=== PATIENT | female | born 1970 | race Caucasian/White ===

== ENCOUNTER 2022-03-04 18:24 | Emergency (ER) | payer MEDICAID, SELFPAY ==
[2022-03-04 18:28] VITALS: BP 150/88; PULSE 78; RESP 16; TEMP 36.9; O2SAT 98
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
[2022-03-04 20:08] VITALS: BP 134/76; PULSE 87; RESP 18; TEMP 36.6; O2SAT 99
== END 2022-03-04 20:08 | disposition home or self-care (01) ==
LOC: ER 20:12
PROVIDERS: Emergency Provider Physician Assistant
DX: S60.021A Contusion of right index finger without damage to nail, initial encounter (principal); S60.031A Contusion of right middle finger without damage to nail, initial encounter; S60.041A Contusion of right ring finger without damage to nail, initial encounter; S60.051A Contusion of right little finger without damage to nail, initial encounter; V48.5XXA Car driver injured in noncollision transport accident in traffic accident, initial encounter; F17.210 Nicotine dependence, cigarettes, uncomplicated
CPT/HCPCS: 99283; 73130; 99282

== ENCOUNTER 2023-02-02 19:39 | Emergency (ER) | payer MEDICAID, SELFPAY ==
[2023-02-02] VITALS (131 sets, daily range): BP systolic 121–155; BP diastolic 65–105; PULSE 82–99; RESP 10–31; TEMP 36.8; O2SAT 76–100
--- NOTE | 2023-02-02 19:30 | RT.EKG_ITS ---
APPROVED REPORT Exam: Resting ECG Reason for Exam: chest pain Patient Location: E HR:85 bpm ECG Measurements Heart Rate 85 AXIS MI 131 P 33 QRSd 89 QRS 17 QT 370 T 44 QTc 442 Conclusion Sinus rhythm..., V-rate 60- 99 Left ventricular hypertrophy...multiple voltage criteria Appropriate intervals. No ST segment or T wave abnormalities to suggest occlusive RI
--- NOTE | 2023-02-02 19:45 | RT.EKG_ITS ---
APPROVED REPORT Exam: Resting ECG Reason for Exam: Pt requests repeat for lead placement Patient Location: E HR:86 bpm ECG Measurements Heart Rate 86 AXIS CA 137 P 44 QRSd 84 QRS 15 QT 375 T 49 QTc 448 Conclusion Sinus rhythm...normal P axis, V-rate 60- 99 Probable left atrial enlargement...P >50mS, <-0.10mV V1 Left ventricular hypertrophy...multiple LVH criteria
[2023-02-02 20:03] LABS: Abs Immature Grans 0.01 10^3/uL (0.0-0.06); Absolute Basophil Count 0.04 10^3/uL (0.0-0.2); Absolute Eosinophil Count 0.16 10^3/uL (0.0-0.7); Absolute Lymphocyte Count 1.62 10^3/uL (1.2-3.4); Absolute Monocyte Count 0.51 10^3/uL (0.1-0.8); Absolute Neutrophil Count 4.37 10^3/uL (1.2-6.7); Basophils % 0.6; Eosinophils % 2.4; HCT 37.4 % (36.0-46.0); HGB 12.2 g/dL (11.2-15.7); Immature Grans % 0.1; Lymphocytes % 24.1; MCH 31.9 pg (27.0-33.0); MCHC 32.6 % (32.0-36.0); MCV 98 fL (80-95); Monocytes % 7.6; Neutrophils % 65.2; Platelet Count 302 10^3/uL (130-400); RBC 3.82 10^6/uL (3.93-5.22); RDW 13.6 % (11.7-14.6); WBC 6.71 10^3/uL (4.4-10.8)
[2023-02-02] MEDS: MORPHine 4 MG/ML SYR IVP (20:13)
[2023-02-02 20:20] LABS: ALT 33 U/L (14-59); AST 29 U/L (15-37); Albumin 3.7 g/dL (3.4-5.0); Alkaline Phosphatase 143 U/L (46-116); Anion Gap 8.5 mmol/L (3-11); BUN 10 mg/dL (7-18); Bilirubin, Total 0.2 mg/dL (0.2-1.0); CO2 29.5 mmol/L (21.0-32.0); CREATININE 0.6 mg/dL (0.55-1.02); Chloride 102 mmol/L (98-107); Glucose 94 mg/dL (74-106); Potassium 3.7 mmol/L (3.5-5.1); Sodium 140 mmol/L (136-145); Total Protein 7.2 g/dL (6.4-8.2); Troponin I < 50 ng/L (<or=60)
--- NOTE | 2023-02-02 20:30 | DI.CT_ITS ---
Exam(s) CT CHEST PE CTA EXAM: CT CHEST PE CTA CLINICAL HISTORY: chest pain. TECHNIQUE: Imaging Protocol: Axial CT angiography was performed with multi-slice acquisition and mu lti-planar reconstructions as well as axial, coronal and sagittal MIP reconstructions. CONTRAST MATERIAL: Intravenous: Omnipaque 350 Contrast volume:100 ml COMPARISON: No exams were available for comparison FINDINGS: Pulmonary Arteries: No evidence of filling defect to suggest pulmonary emboli. Tracheobronchial tree: Patent where visualized. Mediastinum and [place]: No dominant adenopathy or fluid collection. Pulmonary parenchyma: Dependent changes. No consolidation or dominant measurable mass. Pleura: No effusion or pneumothorax. Heart: The heart is not dilated. No coronary artery calcifications are seen. Aorta: Ascending aorta 3.7 cm. No aneurysm. No dissection. Upper abdomen: Unremarkable. Bones: Unremarkable for age. Esophagus contains fluid up to the level of the aortic arch, consistent with reflux.. Prior surgery at the GE junction. IMPRESSION: No evidence of pulmonary embolism. Prior surgery at GE junction. Fluid seen in esophagus could indicate reflux. RADIATION DOSE DELIVERED: 270.8mGy.cm Total DLP DATA REPOSITORY: All CT scans at this facility are submitted to the National Radiology Data Registry (NRDR) Dose Index Registry (DIR) with the [employer] ([employer]). RADIATION OPTIMIZATION: All CT scans at this facility use at least one of these dose optimization te chniques: automated exposure control; mA and/or kV adjustment per patient size (includes targeted exa ms where dose is matched to clinical indication); or iterative reconstruction.
[2023-02-02 20:35] LABS: D-Dimer 581 ng/mlFEU (<500)
[2023-02-02] MEDS: Omnipaque 350 MG/ML 100 ML BTL IJ (21:22)
[2023-02-02] MEDS: Normal Saline - Diluent 50 ML VIAL IJ (21:23)
[2023-02-02] MEDS: Normal Saline Flush 10 ML SYR IVP (21:23)
[2023-02-02] MEDS: HYDROmorphone 2 MG/ML SYR 1 MG IVP (21:24)
[2023-02-02] MEDS: ACETAMINOPHEN 1,000 MG/100 ML BTL 400 MG IVPB (21:55)
[2023-02-02] MEDS: LORazepam 2 MG/ML VIAL 1 MG IVP (22:04)
--- NOTE | 2023-02-02 22:10 | DI.VRAD_ITS ---
PROCEDURE INFORMATION: Exam: CTA Chest With Contrast Exam date and time: 02/02/2023 9:28 PM Age: 53 years old Clinical indication: Other: Chest pain TECHNIQUE: Imaging protocol: Computed tomographic angiography of the chest with contrast. Exam focused on the arteries. 3D rendering (Not supervised by radiologist): MIP and/or 3D reconstructed images were created by the technologist. Radiation optimization: All CT scans at this facility use at least one of these dose optimization techniques: automated exposure control; mA and/or kV adjustment per patient size (includes targeted exams where dose is matched to clinical indication); or iterative reconstruction. Contrast material: OMNI 350; Contrast volume: 100 ml; Contrast route: INTRAVENOUS (IV); COMPARISON: No relevant prior studies available. FINDINGS: Pulmonary arteries: Normal. No pulmonary emboli. Aorta: Unremarkable. No aortic aneurysm. No aortic dissection. Lungs: Unremarkable. No consolidation. No masses. Pleural spaces: Unremarkable. No pneumothorax. No pleural effusion. Heart: Unremarkable. No cardiomegaly. No pericardial effusion. Lymph nodes: Unremarkable. No enlarged lymph nodes. Diaphragm: Small hiatal hernia. Bones/joints: Mild degenerative disc changes throughout the thoracic spine. No acute fracture. Soft tissues: Unremarkable. IMPRESSION: No acute abnormality. Chronic findings as noted. Dictated and Authenticated by: Murali Lynn MD. Ordering:PATRICA Howard MD
[2023-02-02] MEDS: Normal Saline 1,000 ML 1000 ML IV (22:18)
--- NOTE | 2023-02-02 23:01 | ED.GENADUL_ITS ---
Discharge Plan Disposition Patient Disposition: Home Discharge Details Clinical Impression: Chest pain ED Provider: Lee Cornejo Home Meds and New Rx's Prescriptions: Continued sertraline [Zoloft] 100 mg Tablet 300 mg PO DAILY folic acid 10 mg/mL Solution 20 mg dextroamphetamine-amphetamine [Adderall] 20 mg Tablet 20 mg PO BID hydroxychloroquine [Plaquenil] 200 mg Tablet 200 mg PO DAILY celecoxib [Celebrex] 100 mg Capsule 100 mg PO BID methotrexate (PF) 20 mg/0.4 mL Auto-Injector 40 mg SUBCUT QWEEK colchicine (gout) 0.6 mg Capsule 0.6 mg PO BID Discharge Instructions Instructions: Chest Pain (ED) Additional Instructions: At this time your emergency department work-up is nondiagnostic and shows no obvious source for your chest pain. You may continue use of your normally prescribed medications or appropriate [id number] medications as needed for discomfort. If you have any new or significant worsening of symptoms please return to the emergency department for reassessment immediately otherwise follow-up with your primary care provider preferably in the next couple days to arrange any further outpatient testing as needed. Stand Alone Forms: Work Release Referrals: Primary Care Provider [Outside] - 3 days (For reassessment and further testing and treatment as needed) Discharge Data Discharge Date/Time-TO BE ENTERED AT DEPARTURE: 02/03/23 04:36 Medical Decision Making Patient presenting today to the emergency department for chief complaint of substernal chest pain. Patient reports 3 hours prior to arrival she was doing some shoveling and started having some substernal chest pain. Pain and pressure continued to worsen and having some pain in her jaw as well. Patient does state pain with inspiration but denies shortness of breath, nausea vomiting, lightheadedness or dizziness. 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 Physical exam is unremarkable beyond patient appearing to be in significant amount of pain and discomfort. We will plan on performing labs EKG and imaging. Pending results we will give patient morphine Please see physician interpretation for full interpretation of EKG but upon my review it appears that patient is in sinus rhythm and does not meet acute criteria for STEMI. We will continue to monitor Even in spite of morphine patient continued to have significant discomfort so we will give 1mg of Dilaudid if this helps patient's pain and discomfort. Review of labs show an overall nondiagnostic CBC, CMP just shows a slightly elevated alk phos at 143 otherwise CMP is negative, initial troponin is negative/nondetected and slightly elevated D-dimer. Given elevated D-dimer will perform CTA chest PE. After CT imaging patient continued to have pain and discomfort so IV acetaminophen and 1 mg of Ativan was given. Patient did slightly desat after Ativan so nasal cannula oxygen was applied and she responded well with no further desaturation. We were able to titrate the oxygen down. Second troponin is also negative. Patient states near full resolution of pain and discomfort. Beyond smoking patient has no other risk factors and has a low heart score. Discussed disposition with patient and she states that she will follow-up on an outpatient basis and feels reassured with negative work-up. 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 Patient still was slightly sedate so patient allowed to remain in the emergency department until she was appropriate for safe disposition. Imaging Data Radiologic Study: Imaging: CT Scan Radiologist's impression: Exam(s) PROCEDURE INFORMATION: Exam: CTA Chest With Contrast Exam date and time: 02/02/2023 9:28 PM Age: 53 years old Clinical indication: Other: Chest pain TECHNIQUE: Imaging protocol: Computed tomographic angiography of the chest with contrast. Exam focused on the arteries. 3D rendering (Not supervised by radiologist): MIP and/or 3D reconstructed images were created by the technologist. Radiation optimization: All CT scans at this facility use at least one of these dose optimization techniques: automated exposure control; mA and/or kV adjustment per patient size (includes targeted exams where dose is matched to clinical indication); or iterative reconstruction. Contrast material: OMNI 350; Contrast volume: 100 ml; Contrast route: INTRAVENOUS (IV); COMPARISON: No relevant prior studies available. FINDINGS: Pulmonary arteries: Normal. No pulmonary emboli. Aorta: Unremarkable. No aortic aneurysm. No aortic dissection. Lungs: Unremarkable. No consolidation. No masses. Pleural spaces: Unremarkable. No pneumothorax. No pleural effusion. Heart: Unremarkable. No cardiomegaly. No pericardial effusion. Lymph nodes: Unremarkable. No enlarged lymph nodes. Diaphragm: Small hiatal hernia. Bones/joints: Mild degenerative disc changes throughout the thoracic spine. No acute fracture. Soft tissues: Unremarkable. IMPRESSION: No acute abnormality. Chronic findings as noted. Lab Data Lab results reviewed: Yes I reviewed the patient's lab results. HPI General Mode of arrival: ambulatory . Date/Time Provider Initiated Documentation: 02/02/23 19:39 . Limitations to Documentation: no limitations . Information obtained by: patient and RN notes reviewed . History of Present Illness 53 year old F presents to the emergency department with the chief complaint of Chest pain, described as moderate, with intensity rated at 7. and is localized to the chest. Patient reports no radiation. Patient started experiencing this hour(s) (3) and it has been constant. No relieving factors improve symptom(s), No exacerbating factors reported . Patient notes no other symptoms.. Patient did receive the following treatments prior to arrival, NSAID Related Data Home Medications Medication Instructions Recorded Confirmed celecoxib 100 mg capsule (Celebrex) 100 mg PO BID 03/04/22 03/04/22 colchicine (gout) 0.6 mg capsule 0.6 mg PO BID 03/04/22 03/04/22 dextroamphetamine-amphetamine 20 20 mg PO BID 03/04/22 03/04/22 mg tablet (Adderall) folic acid 10 mg/mL injection 20 mg 03/04/22 solution hydroxychloroquine 200 mg tablet 200 mg PO DAILY 03/04/22 03/04/22 (Plaquenil) methotrexate (PF) 20 mg/0.4 mL 40 mg subcut QWEEK 03/04/22 03/04/22 subcutaneous auto-injector sertraline 100 mg tablet (Zoloft) 300 mg PO DAILY 03/04/22 03/04/22 Allergies Allergy/AdvReac Type Severity Reaction Status Date / Time No Known Allergies Allergy Unverified 02/02/23 19:49 General Stated Complaint: Chest Pain KAYLA: 3 Review of Systems Constitutional Constitutional: Denies chills, Denies fever(s) and Denies malaise Cardiovascular Cardiovascular: Reports as per HPI, Reports chest pain, Denies chest pain with activity, Denies syncope, Denies irregular heart rhythm, Denies palpitations and Denies dyspnea Respiratory Respiratory: Denies cough, Denies hemoptysis, Reports pain on inspiration and Denies dyspnea Gastrointestinal Gastrointestinal: Denies abdominal pain, Denies nausea and Denies vomiting Neurologic Neurologic: Denies syncope Psychiatric Psychiatric: Denies anxiety Endocrine Endocrine: Denies cold intolerance, Denies heat intolerance and Denies palpita tions PFSH All Active Problems (Updated 02/03/23 @ 00:06 by Lee Cornejo NP) Chest pain (Acute) Medical History Pericarditis Rheumatoid arthritis Surgical History History of appendectomy History of hernia repair Social History Smoking/Tobacco Use Status: Current every day Tobacco Type: cigarettes Smoking risk assessment performed?: Yes Alcohol Intake: current Alcohol Intake frequency: a few times a week Drug use: Never Substance use type: does not use Do you feel safe at home: Yes Do you feel safe in your relationship?: Yes Exam Const General: cooperative, healthy appearing, comfortable, not diaphoretic and not ill appearing Nutritional Appearance: average body habitus Orientation: alert, awake and oriented x3 Limitations: mental status not altered Neck Neck: normal visual inspection, full ROM, trachea midline, supple and no anterior neck swelling Carotids: normal carotid upstroke and no bruits Chest Chest: normal inspection of the chest Resp Effort & Inspection: normal respiratory effort and able to speak in complete sentences Auscultation: clear to auscultation bilaterally Cardio Jugular venous pressure: no JVD Palpation: normal PMI Rate: regular rate Rhythm: regular rhythm Heart Sounds: S1 normal, S2 normal, no click, no gallops, no murmurs and no rubs Bruits: no carotid bruits Pulses: radial pulses present bilaterally 2+ Skin General skin exam: no rashes or lesions noted Neuro General: patient alert, patient awake, patient oriented x3, tone normal and moves all extremities Course Vital Signs Vital signs: Vital Signs Temperature 36.8 C 02/02/23 19:43 Pulse 87 02/02/23 19:43 Respiratory Rate 16 02/02/23 19:43 Blood Pressure 152/95 H 02/02/23 19:43 Pulse Oximetry 99 02/02/23 19:43 Temperature 36.8 C 02/02/23 19:43 Temperature Source Oral 02/02/23 19:43 Pulse 93 H 02/02/23 22:21 Pulse 92 H 02/02/23 22:30 Respiratory Rate 12 02/02/23 22:30 Respiratory Effort Normal 02/02/23 19:47 Respiratory Depth Normal 02/02/23 19:47 Respiratory Pattern Normal 02/02/23 19:47 Blood Pressure 146/92 H 02/02/23 22:21 Blood Pressure Mean 106 02/02/23 22:21 Pulse Oximetry 99 02/02/23 22:30 Oxygen Delivery Method Room Air 02/02/23 19:43 Oxygen Flow Rate 0 02/02/23 19:43 Pain Level 7 02/02/23 19:43 Lab/Test Results Lab/Test Results: Laboratory Tests Range/Units 02/02/23 02/02/23 02/02/23 19:47 19:47 19:49 WBC (4.4-10.8) 10^3/uL 6.71 RBC (3.93-5.22) 10^6/uL 3.82 L Hgb (11.2-15.7) g/dL 12.2 Hct (36.0-46.0) % 37.4 MCV (80-95) fL 98 H MCH (27.0-33.0) pg 31.9 MCHC (32.0-36.0) % 32.6 RDW (11.7-14.6) % 13.6 Plt Count (130-400) 10^3/uL 302 MPV (8.0-11.0) fL 9.0 Immature Gran % 0.1 Neutrophils % 65.2 Lymphocytes % 24.1 Monocytes % 7.6 Eosinophils % 2.4 Basophils % 0.6 Nucleated RBC % (0.0-0.3) % 0.0 Absolute Neutrophils (1.2-6.7) 10^3/uL 4.37 Absolute Lymphocytes (1.2-3.4) 10^3/uL 1.62 Absolute Monocytes (0.1-0.8) 10^3/uL 0.51 Absolute Eosinophils (0.0-0.7) 10^3/uL 0.16 Absolute Basophils (0.0-0.2) 10^3/uL 0.04 D-Dimer (<500) ng/mlFEU 581 H Sodium (136-145) mmol/L 140 Potassium (3.5-5.1) mmol/L 3.7 Chloride (98-107) mmol/L 102 Carbon Dioxide (21.0-32.0) mmol/L 29.5 Anion Gap (3-11) mmol/L 8.5 BUN (7-18) mg/dL 10 Creatinine (0.55-1.02) mg/dL 0.6 Est GFR (CKD-EPI 2020) (mL/min/1.73m2) 106.60 Glucose (74-106) mg/dL 94 Calcium (8.5-10.1) mg/dL 9.0 Magnesium (1.8-2.4) mg/dL 2.0 Total Bilirubin (0.2-1.0) mg/dL 0.2 AST (15-37) U/L 29 ALT (14-59) U/L 33 Alkaline Phosphatase (46-116) U/L 143 H Troponin I (<or=60) ng/L < 50 Total Protein (6.4-8.2) g/dL 7.2 Albumin (3.4-5.0) g/dL 3.7
[2023-02-02 23:17] LABS: Troponin I < 50 ng/L (<or=60)
[2023-02-03] VITALS (44 sets, daily range): BP systolic 124–152; BP diastolic 76–93; PULSE 75–84; RESP 10–23; O2SAT 88–97
--- NOTE | 2023-02-04 08:31 | NUR.NOTE ---
In pt chart to determine EKG orders.Nursing Note:
== END 2023-02-03 04:36 | disposition home or self-care (01) ==
PROVIDERS: Emergency Provider Nurse Practitioner Family
DX: R07.9 Chest pain, unspecified (principal); R94.31 Abnormal electrocardiogram [ECG] [EKG]; M06.9 Rheumatoid arthritis, unspecified; F17.210 Nicotine dependence, cigarettes, uncomplicated; Z79.899 Other long term (current) drug therapy
CPT/HCPCS: 36415; 71275; 80053; 93005; 96361; 96374; 99285; 83735; 84484; 85025; 85379; 93010; 99284; J0131; J1170; J2060; J2270; J3490

== ENCOUNTER 2025-02-20 22:13 | Emergency (ER) | payer MEDICAID, SELFPAY ==
[2025-02-20 22:18] VITALS: BP 169/97; PULSE 86; RESP 16; TEMP 35.9; O2SAT 96
--- NOTE | 2025-02-20 22:42 | W.ED.GENAD ---
Discharge Plan Disposition Patient Disposition: Home Condition: Stable Discharge Details Clinical Impression: Internal derangement of right knee Primary Care Provider: Unknown,Unknown ED Provider: Saida Berry Home Meds and New Rx's Prescriptions: No Action sertraline [Zoloft] 100 mg Tablet 300 mg PO DAILY dextroamphetamine-amphetamine [Adderall] 20 mg Tablet 20 mg PO BID celecoxib [Celebrex] 100 mg Capsule 100 mg PO BID colchicine 0.6 mg Capsule 0.6 mg PO BID Discharge Instructions Instructions: Internal Derangement of the Knee (DC) Additional Instructions: You were seen in the emergency department today for evaluation of a knee injury. Do not department a full physical examination and had an x-ray that showed a concern for an ACL injury with a small avulsion fracture, and your exam and history is also concerning for potential meniscus involvement on the lateral aspect. You were placed in a knee immobilizer and given crutches, which you should utilize and wear while out and about. Is okay to take them off for sleep and bathing. Please continue to use your home medications for pain, and ice and elevation for your swelling. You should follow-up with your primary care provider to discuss the swelling in your legs, and I have placed a referral to orthopedics to discuss next steps in workup and management of your knee injury. Please follow-up with your primary care provider in the next few days to discuss this visit and any symptoms that change, worsen, or persist. Thank you for allowing us to be part of your care. Referrals: Emmanuel James MD [ [facility] STAFF PHYSICIAN, Orthopaedic Surgical] HPI General Mode of arrival: ambulatory. Date/Time Provider Initiated Documentation: 02/20/25 22:17. Limitations to Documentation: no limitations. Information obtained by: patient and old records reviewed. HPI Narrative: This is a 55-year-old female patient with a history of rheumatoid arthritis presenting for evaluation of a right knee injury. 2 days ago the patient was attempting to remove her work boots, and she felt a popping sensation in the lateral aspect of her knee. Initially she was able to bear weight, but today she had an episode where her knee seem to lock out and she was unable to bear weight. She has been able to extend the knee, and if she flexes the knee she can bear some weight on it briefly. She has not had any repeat trauma, has been taking her prescribed Celebrex and has not been using any additional medications. She reports no numbness, tingling, or weakness distal to the injury. Related Data Home Medications ?Medication ?Instructions ?Recorded ?Confirmed celecoxib 100 mg capsule (Celebrex) 100 mg PO BID 03/04/22 02/20/25 colchicine 0.6 mg capsule 0.6 mg PO BID 03/04/22 02/20/25 dextroamphetamine-amphetamine 20 20 mg PO BID 03/04/22 02/20/25 mg tablet (Adderall) sertraline 100 mg tablet (Zoloft) 300 mg PO DAILY 03/04/22 02/20/25 Allergies Allergy/AdvReac Type Severity Reaction Status Date / Time No Known Allergies Allergy Unverified 02/20/25 22:25 General Stated Complaint: Orthopedic KAYLA: 4 Exam Narrative Exam Narrative: Gen: Awake and alert, in no apparent distress HEENT: Non-icteric sclera Neck: Supple Lungs: No apparent respiratory distress, normal respiratory effort. CV: Appears well perfused, strong distal pulses Abdomen: Non-distended MSK: Moves 4 extremities without apparent limitation in ROM, including the right knee which she is able to range actively though she exhibits apprehension when she does so. She has tenderness along the lateral joint line, a small knee effusion, and no other tenderness to palpation over the quadriceps or patellar tendon, patella, medial joint line or popliteal fossa. She has a firm endpoint with Lori's, though the exam is somewhat limited by the patient's aprehension, and no reproduction of pain or laxity with valgus or varus stressing. Trace peripheral edema bilaterally, strong DP pulses bilaterally Skin: Visualized skin without rashes, cyanosis. Neuro: Normal Gait, no obvious focal deficits or facial asymmetry. Speaks in full, clear sentences. Psych: Appropriate for situation. Course Vital Signs Vital signs: Vital Signs Temperature 35.9 C L 02/20/25 22:18 Pulse 86 02/20/25 22:18 Respiratory Rate 16 02/20/25 22:18 Blood Pressure 169/97 H 02/20/25 22:18 Pulse Oximetry 96 02/20/25 22:18 Temperature 35.9 C L 02/20/25 22:18 Temperature Source Temporal Artery Scan 02/20/25 22:18 Pulse 86 02/20/25 22:18 Respiratory Rate 16 02/20/25 22:18 Blood Pressure 169/97 H 02/20/25 22:18 Pulse Oximetry 96 02/20/25 22:18 Oxygen Delivery Method Room Air 02/20/25 22:18 Oxygen Flow Rate 0 02/20/25 22:18 Pain Level 2 02/20/25 22:31 Comment 9/10 with movement, 2/10 at rest 02/20/25 22:18 Medical Decision Making This is a 55-year-old female patient presenting for evaluation of right knee injury. Differential includes but is not limited to meniscus tear, ligamentous injury and other internal derangement. Considered fracture, dislocation less likely in this patient who is neurovascularly intact and can range the knee. I see no evidence for neurovascular derangement, the patient's peripheral edema is symmetrical and I have a lower concern for DVT, exam less consistent with cellulitis. At this send the patient is comfortable while at rest, and is not requiring of any medications for management of pain. I will obtain an x-ray of the affected right knee. - X-ray reviewed by myself, shows a potential for an avulsion fracture of the tibial spine at the ACL attachment. Degenerative changes are appreciated as well as the soft tissue edema appreciated on physical examination. I provided the patient with a knee immobilizer and crutches, counseled her on conservative management of pain and swelling, and provided an orthopedics referral for the internal derangement of her right knee, most likely ACL plus or minus lateral meniscus. At this time, the patient has had a full medical evaluation and is safe for discharge to home. They are hemodynamically stable, ambulatory, and tolerating PO. They are understanding of the follow-up plan and return precautions. They left our facility without incident. Saida Berry MD [facility] All Active Problems (Updated 02/20/25 @ 23:30 by Saida Berry MD) Internal derangement of right knee (Acute) Medical History Pericarditis Rheumatoid arthritis Surgical History History of appendectomy History of hernia repair Social History Smoking/Tobacco Use Status: Current every day Tobacco Type: cigarettes Smoking risk assessment performed?: Yes Alcohol Intake: current Alcohol Intake frequency: a few times a week Drug use: Never Substance use type: does not use Do you feel safe at home: Yes Do you feel safe in your relationship?: Yes
--- NOTE | 2025-02-20 23:00 | DI.RAD_ITS ---
Exam(s) XR KNEE RT 3V AP,LAT,ALEXIS EXAM: XR KNEE RT 3V AP,LAT,ALEXIS CLINICAL HISTORY: pop, now can't bear weight, ? meniscus tear. TECHNIQUE: 2D digital imaging was performed. COMPARISON: No exams were available for comparison FINDINGS: 3 views There are advanced degenerative changes in the medial compartment advanced narrowing of the medial compartment and marginal osteophytes. In addition, there is an osteophytic density in the intercondylar notch measuring 10 mm wide by 5 mm. This is either loose intra-articular body or possibly an avulsion fracture off the tibial plateau. There is also a joint effusion. There is subcutaneous swelling anterior to the knee and patellar ligament. IMPRESSION: Advanced degenerative changes in the medial compartment. Loose intra-articular body versus avulsion fracture of the tibial spine with joint effusion noted. Suspect significant internal derangement. Recommend follow-up MRI. Preliminary virtual Radiology report was reviewed. DATA REPOSITORY: RADIATION DOSE DELIVERED:
--- NOTE | 2025-02-20 23:26 | DI.VRAD_ITS ---
PROCEDURE INFORMATION: Exam: XR Right Knee Exam date and time: 02/20/2025 10:55 PM Age: 55 years old Clinical indication: Pain; Knee and other: Pop, now can't bear weight, ? meniscus tear; Right TECHNIQUE: Imaging protocol: Radiologic exam of the right knee. Views: 3 views. COMPARISON: No relevant prior studies available. FINDINGS: Bones/joints: Multiple well ossified bodies are noted within the intercondylar notch on the frontal projection. Moderate osteoarthritis. Questionable avulsion fracture of the tibial spine at the anterior cruciate ligament insertion. Soft tissues: Thickened anterior soft tissues. IMPRESSION: 1. Questionable avulsion fracture of the tibial spine at the anterior cruciate ligament insertion. 2. Moderate osteoarthritis with numerous intercondylar well ossified bodies. 3. Thickened anterior soft tissues. Dictated and Authenticated by: Alejandro Swan MD. [facility] Cintron MD
== END 2025-02-20 23:43 | disposition home or self-care (01) ==
LOC: ER 23:36
PROVIDERS: Emergency Provider Emergency Medicine
DX: M23.91 Unspecified internal derangement of right knee (principal); X58.XXXA Exposure to other specified factors, initial encounter
CPT/HCPCS: 99283 ×2; 29505; 73562

== ENCOUNTER 2025-02-21 21:30 | Emergency (ER) | payer MEDICAID, SELFPAY ==
[2025-02-21 21:35] VITALS: BP 158/101; PULSE 80; RESP 16; TEMP 36.2; O2SAT 99
--- NOTE | 2025-02-21 21:54 | W.ED.GENAD ---
Discharge Plan Disposition Patient Disposition: Home Condition: Stable Discharge Details Clinical Impression: Internal derangement of right knee Primary Care Provider: Unknown,Unknown ED Provider: Osvaldo Patel Home Meds and New Rx's Prescriptions: Continued sertraline [Zoloft] 100 mg Tablet 300 mg PO DAILY dextroamphetamine-amphetamine [Adderall] 20 mg Tablet 20 mg PO BID celecoxib [Celebrex] 100 mg Capsule 100 mg PO BID colchicine 0.6 mg Capsule 0.6 mg PO BID pantoprazole 20 mg tablet,delayed release (DR/EC) 20 mg PO DAILY lorazepam [Ativan] 1 mg tablet 1 mg PO DAILY PRN oxycodone 5 mg tablet 5 mg PO BID PRN Discharge Instructions Additional Instructions: Follow-up with orthopedics. Make sure you are wearing the knee immobilizer and use your crutches if you are not laying down. Keep your leg elevated when you are laying down. Try to avoid heavy lifting can help as well. HPI General Mode of arrival: EMS. Date/Time Provider Initiated Documentation: 02/21/25 21:42. Limitations to Documentation: no limitations. Information obtained by: patient. History of Present Illness 55 year old F presents to the emergency department with the chief complaint of right knee pain, described as moderate, Quality is described as aching, Patient started experiencing this day(s) (2) and it has been constant. Rest improves symptom(s), Movement worsens symptoms . Patient notes no other symptoms.. Related Data Home Medications ?Medication ?Instructions ?Recorded ?Confirmed celecoxib 100 mg capsule (Celebrex) 100 mg PO BID 03/04/22 02/21/25 colchicine 0.6 mg capsule 0.6 mg PO BID 03/04/22 02/21/25 dextroamphetamine-amphetamine 20 20 mg PO BID 03/04/22 02/21/25 mg tablet (Adderall) sertraline 100 mg tablet (Zoloft) 300 mg PO DAILY 03/04/22 02/21/25 lorazepam 1 mg tablet (Ativan) 1 mg PO DAILY PRN 02/21/25 02/21/25 oxycodone 5 mg tablet 5 mg PO BID PRN 02/21/25 02/21/25 pantoprazole 20 mg tablet,delayed 20 mg PO DAILY 02/21/25 02/21/25 release Allergies Allergy/AdvReac Type Severity Reaction Status Date / Time adhesive Allergy Mild Topical Verified 02/21/25 21:41 Irritation nickel Allergy Mild Topical Verified 02/21/25 21:41 Irritation General Stated Complaint: Orthopedic KAYLA: 4 Review of Systems All systems reviewed & are unremarkable except as noted in HPI and below Constitutional Constitutional: Denies chills, Denies fever(s) and Denies weakness Cardiovascular Cardiovascular: Denies chest pain and Denies dyspnea Respiratory Respiratory: Denies cough and Denies dyspnea Gastrointestinal Gastrointestinal: Denies abdominal pain, Denies nausea and Denies vomiting Neurologic Neurologic: Denies weakness Exam Const General: no acute distress Orientation: alert HENMT Head: normal to inspection Ears: external ears normal General nose exam: external nose normal Mouth: moist mucous membranes Eyes General: appearance normal, both eyes and all related structures Neck Neck: normal visual inspection Resp Effort & Inspection: normal respiratory effort and able to speak in complete sentences Cardio Rate: regular rate Skin General skin exam: no rashes or lesions noted Neuro General: patient alert and patient oriented x3 Extrem General: capillary refill normal and no cyanosis Psych Mental Status: mental status grossly normal Course Vital Signs Vital signs: Vital Signs Temperature 36.2 C L 02/21/25 21:35 Pulse 80 02/21/25 21:35 Respiratory Rate 16 02/21/25 21:35 Blood Pressure 158/101 H 02/21/25 21:35 Pulse Oximetry 99 02/21/25 21:35 Temperature 36.2 C L 02/21/25 21:35 Temperature Source Temporal Artery Scan 02/21/25 21:35 Pulse 80 02/21/25 21:35 Respiratory Rate 16 02/21/25 21:35 Blood Pressure 158/101 H 02/21/25 21:35 Blood Pressure Position Sitting 02/21/25 21:35 Pulse Oximetry 99 02/21/25 21:35 Oxygen Delivery Method Room Air 02/21/25 21:35 Oxygen Flow Rate 0 02/21/25 21:35 Pain Level 10 02/21/25 21:35 Medical Decision Making 55-year-old female states has a history of rheumatoid arthritis comes in with continued right knee pain. She was seen in yesterday for right knee pain and had an x-ray which showed signs of an internal knee derangement and likely has meniscus or ligamentous injury. She says that the pain started when she was taken off her boot several days ago and then yesterday it increased after she locked her knee. No falls or significant trauma. Denies any fevers. Her right knee is swollen without any erythema or warmth. She is able to fully range the knee but with pain. She has intact distal sensation and pulses. 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 I suspect that she is continuing to strain and stress the already her knee. I do not feel further imaging emergently is indicated. There is no findings on exam to suggest septic joint. 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 She has an appoint with orthopedics on the . Return precautions given Patient started having what seemed to be a panic attack after the knee immobilizer was placed. She was hyperventilating and screaming to herself that everything is going to be okay. No SI HI. Will order oral lorazepam. pt with good response, will f/u with ortho. Return precautions given Differential Diagnosis Differential Diagnosis: ACL injury, meniscus injury. PFSH All Active Problems (Updated 02/21/25 @ 22:22 by Osvaldo Patel MD) Internal derangement of right knee (Acute) Medical History Pericarditis Rheumatoid arthritis Surgical History History of appendectomy History of hernia repair Social History Smoking/Tobacco Use Status: Current every day Tobacco Type: cigarettes Smoking risk assessment performed?: Yes Alcohol Intake: current Alcohol Intake frequency: a few times a week Drug use: Never Substance use type: does not use Do you feel safe at home: Yes Do you feel safe in your relationship?: Yes
[2025-02-21] MEDS: LORazepam 1 MG TAB PO (23:14)
--- NOTE | 2025-02-22 07:08 | NUR.NOTE ---
Access chart to print the demographic sheet and get the discharge diagnosis for [facility] billing requisition. Nursing Note:
== END 2025-02-21 23:47 | disposition home or self-care (01) ==
PROVIDERS: Emergency Provider Emergency Medicine
DX: M23.91 Unspecified internal derangement of right knee (principal)
CPT/HCPCS: 99283 ×2